=== PATIENT | female | born 1960 | race Caucasian/White ===

== ENCOUNTER 2016-10-05 09:41 | Emergency (ER) | payer BC ==
[~2016-10-05] VITALS: Ht 165.1 cm; Wt 57.1 kg
[~2016-10-05 09:41] MED LIST: ALPRAZOLAM0.5 MG PO; HYDROCHLOROTHIA25 MG PO; ZOLMITRIPTAN2.5 MG PO
[2016-10-05 10:40] LABS: HEMATOCRIT 39.8 % (36.0-46.0); MCH 32.9 PG (29.0-34.0); MCHC 34.9 G/DL (30.0-36.0); MCV 94.1 FL (83-99); MEAN PLAT.VOLUME 8.1 uM^3 (9.5-12.4); PLATELET COUNT 246 K/uL (156-360); RBC DIS.WIDTH-CV 11.6 % (11.8-14.6); RBC DIS.WIDTH-SD 39.1 % (39-53); RED BLOOD COUNT 4.23 M/uL (3.80-5.20); WHITE BLOOD COUNT 6.7 K/uL (4.1-10.2)
[2016-10-05 10:49] LABS: CHLORIDE 103 mEq/L (99-109); MAGNESIUM 1.8 mg/dL (1.3-2.7); POTASSIUM 3.2 mEq/L (3.7-5.4); SODIUM 139 mEq/L (136-147)
[2016-10-05 10:51] LABS: GLUCOSE 167 mg/dL (70-99)
[2016-10-05 10:52] LABS: ANION GAP 12 MEQ/L (2-14)
[2016-10-05 10:54] LABS: GFR ESTIMATE (CALCULATED) > 59 mL/min/
[2016-10-05 10:55] LABS: UREA NITROGEN (BUN) 11 mg/dL (9-23)
[2016-10-05 11:00] LABS: TROP-I INTERPRETATION NEGATIVE; TROPONIN-I < 0.01 ng/mL (0.0-0.30)
[2016-10-05] MEDS ORDERED: RANITIDINE HCL150 MG PO (11:33)
[2016-10-05] MEDS ORDERED: DAILY VALUE1 EACH PO (11:34)
[2016-10-05] MEDS ORDERED: FEOSOL325 MG PO (11:34)
[2016-10-05] MEDS ORDERED: CALCIUM500 M4 PO (11:34)
[2016-10-05] MEDS ORDERED: EXCEDRIN MIGRA1 EAC3 PO (11:35)
[2016-10-05] MEDS ORDERED: TYLENOL EXTRA500 MG PO (11:35)
[2016-10-05 17:06] VITALS: BP 145/69
[2016-10-05 18:22] LABS: TROP-I INTERPRETATION NEGATIVE; TROPONIN-I 0.03 ng/mL (0.0-0.30)
[2016-10-05 20:18] VITALS: BP 136/64
[2016-10-06 00:15] VITALS: BP 132/62
[2016-10-06 02:38] LABS: CHLORIDE 108 mEq/L (99-109); SODIUM 140 mEq/L (136-147)
[2016-10-06 02:41] LABS: ANION GAP 8 MEQ/L (2-14)
[2016-10-06 02:43] LABS: GFR ESTIMATE (CALCULATED) > 59 mL/min/
[2016-10-06 02:44] LABS: UREA NITROGEN (BUN) 7 mg/dL (9-23)
[2016-10-06 02:48] LABS: GLUCOSE 103 mg/dL (70-99); TROP-I INTERPRETATION NEGATIVE; TROPONIN-I 0.02 ng/mL (0.0-0.30)
[2016-10-06 04:22] VITALS: BP 127/65
[2016-10-06 08:24] VITALS: BP 121/68
== END 2016-10-06 09:50 | disposition home or self-care (01) ==
LOC: EME 09:41 → EDOF 11:50 → 5WEST 16:55
PROVIDERS: Internal Medicine
PROC: 5A2204Z Restoration of Cardiac Rhythm, Single (ICD-10-PCS; principal; 2016-10-05)
DX: I48.91 Unspecified atrial fibrillation (principal); R11.2 Nausea with vomiting, unspecified; E87.6 Hypokalemia; I10 Essential (primary) hypertension; K21.9 Gastro-esophageal reflux disease without esophagitis; F41.9 Anxiety disorder, unspecified; G43.909 Migraine, unspecified, not intractable, without status migrainosus; M19.90 Unspecified osteoarthritis, unspecified site
CPT/HCPCS: 71020; 80048; 83735; 84484; 85027; 93005; 99281; 99285; G0378; J2250; J2405; J3480; J7030